=== PATIENT | male | born 1945 | race Caucasian/White ===

== ENCOUNTER → 2018-02-02 | Outpatient (CLI) | payer OTHER, MEDICARE ==
[~2018-02-02] MED LIST: ALEVE220 M2 PO; ALLEGRA ALLERG180 MG PO; AMBIEN5 MG PO; ATIVAN1 MG PO; BIOTENE ORALBAL42 G1 MM; CENTRUM ULTRA1 EACH PO; DEXAMETHASONE4 MG PO; ENDOCET 5-3251 EACH PO; FLONASE16 G1 BOTH NARES; GABAPENTIN100 MG PO; GABAPENTIN250 MG/5 M GT; HYDROCODON-ACE1 EAC7 PO; LEVOTHYROXINE50 MCG PO; LORAZEPAM1 MG PO; POTASSIUM GLUCO2 MEQ PO; SILVADENE20 GM TP; TYLENOL EXTRA500 MG PO; TYLENOL REGULA325 MG PO; VITAMIN B-121000 MC4 SL; VITAMIN E400 UNIT PO; XYLITOL PO; ZOFRAN ODT8 MG PO
== END | disposition home or self-care (01) ==
DX: R13.12 Dysphagia, oropharyngeal phase (principal)
CPT/HCPCS: 92611 GN; G8996 GN; G8997 GN; G8998 GN

== ENCOUNTER 2018-02-08 11:31 | Inpatient (IN) | payer OTHER, MEDICARE ==
[~2018-02-08] VITALS: Ht 170.2 cm; Wt 59.9 kg
[~2018-02-08 11:31] MED LIST changes: -BIOTENE ORALBAL42 G1 MM; -CENTRUM ULTRA1 EACH PO; -GABAPENTIN100 MG PO; -GABAPENTIN250 MG/5 M GT; -LEVOTHYROXINE50 MCG PO; -POTASSIUM GLUCO2 MEQ PO; -TYLENOL EXTRA500 MG PO; -VITAMIN B-121000 MC4 SL; -VITAMIN E400 UNIT PO; -XYLITOL PO
[2018-02-08 11:56] LABS: HEMATOCRIT 36.9 % (38.0-50.0); HEMOGLOBIN 12.9 G/DL (12.5-16.6); MCH 30.7 PG (29.0-34.0); MCV 87.9 FL (86-99); PLATELET COUNT 162 K/uL (156-360); RBC DIS.WIDTH-SD 41.6 % (39-53); WHITE BLOOD COUNT 3.7 K/uL (4.1-10.2)
[2018-02-08 12:06] LABS: CHLORIDE 97 mEq/L (99-109); POTASSIUM 4.3 mEq/L (3.7-5.4); SODIUM 135 mEq/L (136-147)
[2018-02-08 12:07] LABS: GLUCOSE 134 mg/dL (70-99)
[2018-02-08 12:11] LABS: CREATININE 1.1 mg/dL (0.6-1.3); GFR ESTIMATE (CALCULATED) > 59 mL/min/ (58.99-99999)
[2018-02-08 12:12] LABS: UREA NITROGEN (BUN) 16 mg/dL (9-23)
[2018-02-08 14:44] LABS: TROP-I INTERPRETATION NEGATIVE; TROPONIN-I < 0.01 ng/mL (0.0-0.30)
[2018-02-08 15:35] VITALS: BP 191/92
[2018-02-08 16:53] LABS: APPEARANCE CLEAR ((CLEAR)); BILIRUBIN NEGATIVE; BLOOD NEGATIVE; COLOR STRAW ((YELLOW)); GLUCOSE (STRIP) NEGATIVE; KETONES NEGATIVE; LEUKOCYTES NEGATIVE; NITRITE NEGATIVE; PROTEIN (STRIP) NEGATIVE; SPECIFIC GRAVITY 1.008 (1.000-1.030); UCUL ADDED? NO; UROBILINOGEN 0.2 MG/DL (0.2-1.0)
[2018-02-08] MEDS ORDERED: GABAPENTIN100 MG PO (17:37)
[2018-02-08] MEDS ORDERED: LEVOTHYROXINE50 MCG PO (17:37)
[2018-02-08] MEDS ORDERED: TYLENOL EXTRA500 MG PO (17:38)
[2018-02-08] MEDS ORDERED: CENTRUM ULTRA1 EACH PO (17:39)
[2018-02-08] MEDS ORDERED: VITAMIN B-121000 MC4 SL (17:40)
[2018-02-08] MEDS ORDERED: VITAMIN E400 UNIT PO (17:41)
[2018-02-08] MEDS ORDERED: XYLITOL PO (17:46)
[2018-02-08] MEDS ORDERED: BIOTENE ORALBAL42 G1 MM (17:48)
[2018-02-08] MEDS ORDERED: POTASSIUM GLUCO2 MEQ PO (17:50)
[2018-02-09 00:01] VITALS: BP 158/79
[2018-02-09 07:37] VITALS: BP 151/77
[2018-02-09 09:36] LABS: HEMATOCRIT 37.4 % (38.0-50.0); HEMOGLOBIN 12.8 G/DL (12.5-16.6); MCH 29.7 PG (29.0-34.0); MCHC 34.2 G/DL (30.0-36.0); MCV 86.8 FL (86-99); PLATELET COUNT 172 K/uL (156-360); RED BLOOD COUNT 4.31 M/uL (4.00-5.50); WHITE BLOOD COUNT 4.9 K/uL (4.1-10.2)
[2018-02-09 10:09] LABS: CHLORIDE 98 MEQ/L (99-109); CREATININE 0.7 MG/DL (0.6-1.3); GFR ESTIMATE (CALCULATED) > 59 mL/min/ (58.99-99999); GLUCOSE 103 mg/dL (70-99); POTASSIUM 3.9 MEQ/L (3.7-5.4); SODIUM 135 MEQ/L (136-147); UREA NITROGEN (BUN) 10 mg/dL (9-23)
[2018-02-09 16:26] VITALS: BP 183/90
[2018-02-09 23:31] VITALS: BP 165/86
[2018-02-10 06:50] LABS: ALBUMIN 3.6 G/DL (3.2-4.8); CHLORIDE 98 MEQ/L (99-109); CREATININE 0.8 MG/DL (0.6-1.3); GFR ESTIMATE (CALCULATED) > 59 mL/min/ (58.99-99999); GLUCOSE 96 mg/dL (70-99); POTASSIUM 4.2 MEQ/L (3.7-5.4); SODIUM 134 MEQ/L (136-147); UREA NITROGEN (BUN) 13 mg/dL (9-23)
[2018-02-10 07:21] VITALS: BP 130/65
[2018-02-10 07:56] LABS: THYROTROPIN (TSH) 1.7 MIU/L (0.4-5.5)
[2018-02-10] MEDS ORDERED: GABAPENTIN250 MG/5 M GT (14:31)
== END 2018-02-10 15:38 | disposition home health service (06) | DRG 392 ==
LOC: EME 11:31 → EDOF 15:16 → 5SOUTH 15:16 → ENRESERV 15:17 → 5SOUTH 17:29 → ENPENDDIS 02-10 14:30 → 5SOUTH 02-10 15:38
PROVIDERS: Family Medicine; Hospitalist; Physician Assistant
DX: K22.2 Esophageal obstruction (principal); R13.12 Dysphagia, oropharyngeal phase; Y84.2 Radiological procedure and radiotherapy as the cause of abnormal reaction of the patient, or of later complication, without mention of misadventure at the time of the procedure; E87.1 Hypo-osmolality and hyponatremia; I95.1 Orthostatic hypotension; R63.4 Abnormal weight loss; Z68.20 Body mass index [BMI] 20.0-20.9, adult; G62.9 Polyneuropathy, unspecified; E03.9 Hypothyroidism, unspecified; K59.00 Constipation, unspecified; M54.9 Dorsalgia, unspecified; G89.29 Other chronic pain; F41.9 Anxiety disorder, unspecified; Z85.819 Personal history of malignant neoplasm of unspecified site of lip, oral cavity, and pharynx; Z87.891 Personal history of nicotine dependence; Z92.3 Personal history of irradiation; T45.1X5A Adverse effect of antineoplastic and immunosuppressive drugs, initial encounter; Z91.81 History of falling
CPT/HCPCS: 43760; 71046; 80048; 81003; 82040; 82607; 82948; 84443; 84484; 85027; 93005; 99281; 99285; J0360; J1885; J7030

== ENCOUNTER 2018-02-12 11:48 | Emergency (ER) | payer OTHER, MEDICARE ==
[~2018-02-12] VITALS: Ht 170.2 cm; Wt 58.7 kg
[~2018-02-12 11:48] MED LIST changes: +BIOTENE ORALBAL42 G1 MM; +CENTRUM ULTRA1 EACH PO; +GABAPENTIN100 MG PO; +GABAPENTIN250 MG/5 M GT; +LEVOTHYROXINE50 MCG PO; +POTASSIUM GLUCO2 MEQ PO; +TYLENOL EXTRA500 MG PO; +VITAMIN B-121000 MC4 SL; +VITAMIN E400 UNIT PO; +XYLITOL PO
[2018-02-12 14:35] LABS: BASOPHIL (%) 0.2 % (0-1); EOSINOPHIL (%) 0.9 % (0-5); HEMATOCRIT 36.7 % (38.0-50.0); HEMOGLOBIN 12.7 G/DL (12.5-16.6); IMMATURE GRANULOCYTE (%) 0.2 % (0.0-0.7); LYMPHOCYTE (%) 10.9 % (15-42); LYMPHOCYTE COUNT 0.5 K/uL (1.0-2.8); MCH 30.1 PG (29.0-34.0); MCHC 34.6 G/DL (30.0-36.0); MONOCYTE (%) 7.6 % (3-12); MONOCYTE COUNT 0.3 K/uL (0-0.8); NEUTROPHIL (%) 80.2 % (45-76); NEUTROPHIL COUNT 3.6 K/uL (1.8-6.4); PLATELET COUNT 156 K/uL (156-360); RBC DIS.WIDTH-CV 13.2 % (11.8-14.6); RBC DIS.WIDTH-SD 41.1 % (39-53); RED BLOOD COUNT 4.22 M/uL (4.00-5.50); WHITE BLOOD COUNT 4.5 K/uL (4.1-10.2)
[2018-02-12 14:44] LABS: ALBUMIN 4.2 g/dL (3.2-4.8); CHLORIDE 100 mEq/L (99-109); POTASSIUM 3.9 mEq/L (3.7-5.4); SODIUM 136 mEq/L (136-147)
[2018-02-12 14:46] LABS: GLUCOSE 90 mg/dL (70-99); TOTAL PROTEIN 7.1 g/dL (6.4-8.3)
[2018-02-12 14:48] LABS: TOTAL BILIRUBIN 0.4 mg/dL (0.0-1.0)
[2018-02-12 14:50] LABS: ALKALINE PHOSPHATASE 77 IU/L (3-129); CREATININE 0.9 mg/dL (0.6-1.3); GFR ESTIMATE (CALCULATED) > 59 mL/min/ (58.99-99999)
[2018-02-12 14:51] LABS: UREA NITROGEN (BUN) 22 mg/dL (9-23)
[2018-02-12 14:52] LABS: AST (GOT) 31 IU/L (2-34)
[2018-02-12 14:53] LABS: ALT (GPT) 19 IU/L (3-49)
[2018-02-12 15:34] LABS: APPEARANCE CLEAR ((CLEAR)); BILIRUBIN NEGATIVE; BLOOD NEGATIVE; COLOR YELLOW ((YELLOW)); GLUCOSE (STRIP) NEGATIVE; KETONES NEGATIVE; LEUKOCYTES NEGATIVE; NITRITE NEGATIVE; PROTEIN (STRIP) NEGATIVE; UCUL ADDED? NO; UROBILINOGEN 0.2 MG/DL (0.2-1.0)
[2018-02-12 16:21] VITALS: BP 166/90
== END 2018-02-12 16:27 | disposition home or self-care (01) ==
LOC: EME 11:48
PROVIDERS: Physician Assistant Medical
DX: E86.0 Dehydration (principal); J30.9 Allergic rhinitis, unspecified; F41.9 Anxiety disorder, unspecified; Z93.1 Gastrostomy status; Z85.810 Personal history of malignant neoplasm of tongue; Z92.21 Personal history of antineoplastic chemotherapy; Z92.3 Personal history of irradiation; Z87.891 Personal history of nicotine dependence
CPT/HCPCS: 80053; 81003; 85025; 99281; 99284; J7030